=== PATIENT | female | born 1960 | race Caucasian/White ===

== ENCOUNTER → 2017-02-24 | Outpatient (CLI) | payer BC ==
--- NOTE | 2017-02-24 19:21 | Diagnostic Imaging Report ---
Bilateral screening mammogram The current study was also evaluated with a Computer Aided Detection (CAD) system. INDICATION: Screening. No current complaints stated on the questionnaire. COMPARISON: 01/27/16. FINDINGS: The breasts are composed of heterogeneously dense parenchyma which may decrease mammographic sensitivity. No mass, architectural distortion or suspicious cluster of calcifications. Allowing for technique and positional differences, no suspicious change is seen. IMPRESSION: Dense breasts with no definite change. ACR BI-RADS Category 2: Benign findings. Result letter will be mailed to the patient. Note: At least 10% of breast cancer is not imaged by mammography. Dictated by: Dictated on workstation # [id number]
== END ==
LOC: RAD 07:15
PROVIDERS: ATTEND Family Medicine
DX: Z12.31 Encounter for screening mammogram for malignant neoplasm of breast (principal)
CPT/HCPCS: 77067

== ENCOUNTER → 2018-02-27 | Outpatient (CLI) | payer BC ==
--- NOTE | 2018-02-27 09:40 | Diagnostic Imaging Report ---
INDICATION: Routine screening. COMPARISON: 02/24/2017 and 01/27/2016. TECHNIQUE: 2D and 3D bilateral screening mammography was performed with CAD. FINDINGS: Scattered fibroglandular densities are identified bilaterally. The parenchymal pattern is stable. No dominant mass or malignant appearing microcalcifications are seen. The axillae are unremarkable. IMPRESSION: No mammographic features suspicious for malignancy are identified. ACR BI-RADS Category 1: Negative. Result letter will be mailed to the patient. Note: At least 10% of breast cancer is not imaged by mammography. Dictated by: Dictated on workstation # [id number]
== END ==
LOC: RAD 07:16
PROVIDERS: ATTEND Nurse Practitioner Family
DX: Z12.31 Encounter for screening mammogram for malignant neoplasm of breast (principal)
CPT/HCPCS: 77067

== ENCOUNTER → 2019-02-28 | Outpatient (CLI) | payer BC ==
--- NOTE | 2019-02-28 13:04 | Diagnostic Imaging Report ---
INDICATION: Routine screening. COMPARISON: 02/27/2018 and 02/24/2017. TECHNIQUE: 2D and 3D bilateral screening mammography was performed with CAD. FINDINGS: Both breasts are heterogeneously dense, limiting the sensitivity of mammography. The right breast is unremarkable. The left breast CC view does show an area of increased density centrally in the mid to posterior depth, best seen on tomographic image 22 which is a CC view. No definite correlate on the MLO view is seen. No suspicious calcifications are identified. There are benign calcifications noted. The axillae are unremarkable. IMPRESSION: Left breast density. Additional views including spot compression, rolled CC, and mediolateral views are recommended. ACR BI-RADS Category 0: Incomplete. (Needs additional imaging evaluation). Result letter will be mailed to the patient. Note: At least 10% of breast cancer is not imaged by mammography. Dictated by: Dictated on workstation # [id number]
== END ==
LOC: RAD 07:18
PROVIDERS: ATTEND Family Medicine
DX: Z12.31 Encounter for screening mammogram for malignant neoplasm of breast (principal); R92.8 Other abnormal and inconclusive findings on diagnostic imaging of breast
CPT/HCPCS: 77067

== ENCOUNTER → 2019-03-08 | Outpatient (CLI) | payer BC ==
--- NOTE | 2019-03-08 14:43 | Diagnostic Imaging Report ---
Indication: Left breast density. Patient presents for additional views. Correlation is made with the screening study from 02/28/2019. Unilateral left 2-D and 3-D diagnostic mammography was performed including spot compression CC and ML as well as rolled CC as well as conventional 90 degree lateral views. Additional views failed to demonstrate a discrete mass. There appears to be normal dispersion on the spot compression and rolled CC views. There is mild residual density in the superior left breast on the conventional 90 degree lateral view. Further evaluation with ultrasound is recommended. No suspicious calcifications are seen. Impression: BI-RADS 0. No discrete mass is identified. Even so, direct sonographic interrogation of the upper left breast is recommended and will be performed today. ACR BI-RADS Category 0: Incomplete. (Needs additional imaging evaluation). Result letter will be mailed to the patient. Note: At least 10% of breast cancer is not imaged by mammography. Dictated by: Dictated on workstation # [id number]
--- NOTE | 2019-03-08 19:27 | Diagnostic Imaging Report ---
INDICATION: Left breast density. Study is performed for further evaluation. Correlation is made with screening mammogram from 02/28/2019 and diagnostic mammogram from 03/08/2019. FINDINGS: Sonographic interrogation of the upper left breast was performed from approximately 11 to 2 o'clock location. No sonographic abnormality is seen. No solid or cystic mass is detected. IMPRESSION: No sonographic abnormality is detected. The patient may return to routine annual screening mammography. ACR BI-RADS Category 1: Negative. Dictated by: Dictated on workstation # [id number]
== END ==
LOC: RAD 14:13
PROVIDERS: ATTEND Nurse Practitioner Family
DX: R92.2 Inconclusive mammogram (principal)
CPT/HCPCS: 76642

== ENCOUNTER → 2021-08-04 | Outpatient (CLI) | payer BC ==
--- NOTE | 2021-08-04 17:45 | Diagnostic Imaging Report ---
EXAM: Digital mammogram bilateral screening COMPARISON: This study was compared to the prior exams of 02/18/2019, 02/27/2018 and 02/24/2017. At this time, there are no current complaints. The current study was also evaluated with a Computer Aided Detection (CAD) system. FINDINGS: The fibroglandular tissue in both breasts is heterogeneously dense. This does limit the sensitivity of this exam. Overall, there does not appear to have been any significant change when compared to the prior study. No primary or secondary sign of malignancy is noted. IMPRESSION: 1. There is no radiographic evidence for malignancy. 2. The patient should have her annual bilateral screening mammogram on schedule in July of 2022. ACR category 1. ACR BI-RADS Category 1: Negative. Result letter will be mailed to the patient. Note: At least 10% of breast cancer is not imaged by mammography. Dictated by: Dictated on workstation # [id number]
== END ==
LOC: RAD 13:00
PROVIDERS: ATTEND Nurse Practitioner Family
DX: Z12.31 Encounter for screening mammogram for malignant neoplasm of breast (principal)
CPT/HCPCS: 77063; 77067

== ENCOUNTER → 2022-08-05 | Outpatient (CLI) | payer BC ==
--- NOTE | 2022-08-05 11:56 | Diagnostic Imaging Report ---
Indication: Routine screening. Comparison is made with prior mammograms 08/04/2021 and 02/28/2019. 2-D and 3-D bilateral screening mammography was performed with CAD. Both breasts are heterogeneously dense, limiting the sensitivity of mammography. No mass or malignant-appearing microcalcifications are seen. Axillae are unremarkable. IMPRESSION: BI-RADS Category 1. No mammographic features suspicious for malignancy are identified. ACR BI-RADS Category 1: Negative. Result letter will be mailed to the patient. Note: At least 10% of breast cancer is not imaged by mammography. Dictated by: Dictated on workstation # [id number]
== END ==
LOC: RAD 07:45
PROVIDERS: ATTEND Family Medicine
DX: Z12.31 Encounter for screening mammogram for malignant neoplasm of breast (principal)
CPT/HCPCS: 77063; 77067

== ENCOUNTER 2023-04-29 05:34 | Outpatient (CLI) | payer BC ==
[~2023-04-29] VITALS: Ht 163 cm; Wt 52.7 kg
[2023-04-29] MEDS ORDERED: SERT50TA2 PO (13:41)
[2023-04-29] MEDS ORDERED: TRZ50T PO (13:41)
== END 2023-04-29 13:46 ==
LOC: PREOP 05:34
PROVIDERS: ATTEND Internal Medicine
DX: Z01.818 Encounter for other preprocedural examination (principal)

== ENCOUNTER 2023-05-06 08:21 | Day surgery (SDC) | payer BC ==
--- NOTE | 2023-04-29 08:45 | HISTORY AND PHYSICAL ---
COLONOSCOPY HISTORY AND PHYSICAL HISTORY OF PRESENT ILLNESS: The patient is a 62-year-old white female referred by Dr. Oconnell for screening colonoscopy. She does report over the past several months, she has been having increased issues with constipation requiring MiraLax on a regular basis. She has had no medication changes, takes no calcium supplementation, but does take vitamin D. She had one other colonoscopy done over 10 years ago that was unremarkable with no evidence for neoplasia. She denies bright red blood per rectum. If she goes several days without having a bowel movement, she will feel bloating and some mild discomfort. Weight has reportedly been stable. PAST MEDICAL HISTORY: Significant for multiple sclerosis diagnosed in her 30s. She has left upper extremity weakness and bilateral numbness and tingling with several episodes of double vision, led to her diagnosis. She has done well for the past several years and they just recently stopped Betaseron. PAST SURGICAL HISTORY: Significant for and polycystic disease and underwent right oophorectomy for which there was no evidence for cancer per her report. FAMILY HISTORY: Pertinent for one uncle with colon cancer. Mother is living at the age of 80 and has had history of polyps. She has a sister who has had history of colon polyps as well. Father of brain cancer, believed to his glioblastoma at the age of 59. SOCIAL HISTORY: She has no past smoking history, occasional small volume weekend alcohol consumption. REVIEW OF SYSTEMS: CONSTITUTIONAL: Denies night sweats, chills, fever or change in weight. PULMONARY: Denies cough, wheezing or shortness of breath. CARDIOVASCULAR: Denies chest pain, orthopnea, PND, or pedal edema. GASTROINTESTINAL: As noted in the HPI. PHYSICAL EXAMINATION: GENERAL: Reveals a pleasant white female, appeared to be in no acute distress. VITAL SIGNS: Weight 116 pounds, blood pressure 120/72. HEENT: Unremarkable. Sclerae nonicteric. CHEST: Clear to auscultation. CARDIOVASCULAR: Reveals regular rate and rhythm without murmur, S3, or S4. ABDOMEN: Soft, supple without mass, organomegaly, or tenderness. EXTREMITIES: Revealed no cyanosis, clubbing or edema. ASSESSMENT AND PLAN: The patient is being set up for screening colonoscopy. She does have history of recent onset constipation, which I advised she continue MiraLax for now. Further recommendations post-colonoscopy. Prep instructions were given and questions were answered. I thank you for the referral of this pleasant lady. Zeke ID: [id number] DocumentID: [id number] Dictated Date: 04/27/2023 16:48:15 [employer] Worker Date: 04/27/2023 17:08:00 Dictated By: MARA GASTELUM MD
[~2023-05-06] VITALS: Ht 163 cm; Wt 52.7 kg
[~2023-05-06 08:21] MED LIST: SERT50TA2 PO; TRZ50T PO
[2023-05-06] MEDS ORDERED: LACTATED RINGERS 1,000 ML 1,000 ML IV STA (08:22)
[2023-05-06 08:45] VITALS: BP 121/74
--- NOTE | 2023-05-06 08:57 | Pre-Op Note & Conscious Sedat ---
Pre-Operative Progress Note Date H&P Reviewed: May 06, 2023 Time H&P Reviewed: 08:57 Pre-Op Diagnosis: screening Moderate Sedation PreProcedure ASA Score 2 Airway Lungs Heart ASA score ASA 1: a normal healthy patient ASA 2: a patient with a mild systemic disease (mid diabetes, controlled hypertension, obesity ASA 3: a patient with a severe systemic disease that limits activity (angina, COPD, prior Myocardial infarction) ASA 4: a patient with an incapacitating disease that is a constant threat to life (CHF, renal failure) ASA 5: a moribund patient not expected to survive 24 hrs. (ruptured aneurysm) ASA 6: a declared brain- patient whose organs are being harvested. For emergent operations, add the letter E after the classification Mallampati Classification Grade 2 Sedation Plan Analgesia, Amnesia, Plan communicated to team members, Discussed options with patient/fam, Discussed risks with patient/fam The patient is an appropriate candidate to undergo the planned procedure, sedation, and anesthesia. The patient immediately re-assessed prior to indication. MARA GASTELUM MD May 06, 2023 08:57
[2023-05-06] MEDS ORDERED: MIDAZOLAM INJ 2 MG/2 ML VIAL ONE (09:22)
[2023-05-06] MEDS ORDERED: SIMETHICONE 40 MG/0.6 ML (MYLICON DROPS) 30 ML BTL PO PRN (09:32)
[2023-05-06] MEDS ORDERED: SIMETHICONE 40 MG/0.6 ML (MYLICON DROPS) 30 ML BTL ONE (09:33)
[2023-05-06 09:56] VITALS: BP 89/51
--- NOTE | 2023-05-06 09:59 | Progress Note-Post Operative ---
Post-Procedure Note Physician (s)/Tourist Information Officer (s) Physician MARA GASTELUM MD Pre-Procedure Diagnosis Pre-Procedure Diagnosis: screening Post-Procedure Diagnosis Post-operative diagnosis: Prior to undergoing colonoscopy digital rectal evaluation was performed. Anal sphincter tone was normal and the perianal reflexes intact. no abnormalities are noted on digital inspection of the anal canal or distal rectal vault. The colonoscope was then inserted into the rectum and under direct visitation advanced the cecum. The cecum was identified by the indication of the ileocecal valve and cecal strap. Photographic documentation was obtained. A careful inspection was made as the colonoscope withdrawn. Quality the prep was good. Findings there are no evidence for internal/external hemorrhoids. The rectum was unremarkable. Present at the rectosigmoid junction was a 3 mm sessile hyperplastic appearing polyp was biopsied and ablated with no significant blood loss. The sigmoid colon descending colon splenic flexure transverse colon hepatic flexure ascending colon and cecum were unremarkablePrior to undergoing colonoscopy digital rectal evaluation was performed. Anal suture tone was normal and the perianal reflexes intact. A/P 1. One 3 mm sessile hyperplastic appearing polyp was removed via hot forceps from the rectosigmoid junction with an otherwise normal colonoscopy to the cecum under good prep conditions. Would advocate consideration for repeat screening colonoscopy in 10 years. CC: MARA Servin MD, MD May 06, 2023 09:59
[2023-05-06 10:01] VITALS: BP 96/57
[2023-05-06 10:10] VITALS: BP 96/57
[2023-05-06 10:33] VITALS: BP 96/57
--- NOTE | 2023-05-06 10:59 | Anesthesia-General Post-Op ---
MAC Patient Condition Mental Status/LOC: Same as Preop Cardiovascular: Satisfactory Nausea/Vomiting: Absent Respiratory: Satisfactory Pain: Controlled Complications: Absent Post Op Complications Complications None Follow Up Care/Instructions Patient Instructions None needed. Anesthesiology Discharge Order Discharge Order Patient is doing well, no complaints, stable vital signs, no apparent adverse anesthesia problems. No complications reported per nursing. SHANTE BUTLER CRNA May 06, 2023 10:59
== END 2023-05-06 10:51 | disposition home or self-care (01) ==
LOC: ENDO 08:21
PROVIDERS: ATTEND Internal Medicine
DX: Z12.11 Encounter for screening for malignant neoplasm of colon (principal); K63.5 Polyp of colon; K59.00 Constipation, unspecified; Z79.899 Other long term (current) drug therapy
CPT/HCPCS: 88305

== ENCOUNTER → 2023-08-08 | Outpatient (CLI) | payer BC ==
--- NOTE | 2023-08-08 11:21 | Diagnostic Imaging Report ---
INDICATION: Routine screening. COMPARISON: 08/05/2022 and 08/04/2021. TECHNIQUE: 2D and 3D bilateral screening mammography was performed with CAD. FINDINGS: Both breasts are heterogeneously dense, limiting the sensitivity of mammography. The parenchymal pattern is stable. No mass or malignant-appearing microcalcifications are seen. The axillae are unremarkable. IMPRESSION: No mammographic features suspicious for malignancy are identified. ACR BI-RADS Category 1: Negative. Result letter will be mailed to the patient. Note: At least 10% of breast cancer is not imaged by mammography. Dictated by: Dictated on workstation # [id number]
== END ==
LOC: RAD 07:35
PROVIDERS: ATTEND Family Medicine
DX: Z12.31 Encounter for screening mammogram for malignant neoplasm of breast (principal)
CPT/HCPCS: 77063; 77067